=== PATIENT | female | born 1990 | race Caucasian/White ===

== ENCOUNTER → 2016-11-27 | Outpatient (CLI) | payer OTHER ==
[2016-11-27 18:37] LABS: HEMATOCRIT 41.9 % (37-47); MEAN CELL VOLUME 93.1 fL (80-100); MEAN CORPUSCULAR HEMOGLOBIN 30.9 pg (25-34); MEAN CORPUSCULAR HGB CONC 33.2 g/dl (32-36); MEAN PLATELET VOLUME 11.8 fL (7.4-10.4); PLATELET COUNT 266 K/uL (130-400); WHITE BLOOD COUNT 7.63 K/uL (4.8-10.8)
[2016-11-27 18:43] LABS: BLOOD UREA NITROGEN 12 mg/dl (7-18); BUN/CREATININE RATIO 21.8 (10-20); C-REACTIVE PROTEIN < 0.29 mg/dl (0-0.29); CARBON DIOXIDE 25 mmol/L (21-32); CHLORIDE 108 mmol/L (98-107); CREATININE 0.56 mg/dl (0.60-1.20); GLUCOSE 88 mg/dl (70-99); SODIUM 140 mmol/L (136-145)
[2016-11-27 18:47] LABS: CALCIUM 8.9 mg/dl (8.5-10.1)
[2016-11-27 18:52] LABS: RHEUMATOID FACTOR < 10.0 U/mL (0-15)
[2016-11-27 19:18] LABS: LYME DISEASE AB IGM NEG (NEG)
[2016-11-27 19:20] LABS: LYME DISEASE AB IGG NEG (NEG)
== END | disposition home or self-care (01) ==
LOC: C.LABMFLN 15:36
PROVIDERS: ATTEND Family Medicine
DX: D86.0 Sarcoidosis of lung (principal); R53.83 Other fatigue